=== PATIENT | male | born 1935 | race Caucasian/White ===

== ENCOUNTER 2020-07-29 13:21 | Outpatient (REF) | payer SELFPAY | END 2020-07-29 13:22 | disposition home or self-care (01) | LOC: HO.HAP 13:21 | PROVIDERS: Visit Provider Internal Medicine Pulmonary Disease | DX: Z46.1 Encounter for fitting and adjustment of hearing aid (principal) | CPT/HCPCS: 92700 ==

== ENCOUNTER 2020-08-05 10:22 | Outpatient (REF) | payer SELFPAY | END 2020-08-05 10:23 | disposition home or self-care (01) | LOC: HO.HAP 10:22 | PROVIDERS: PCP Internal Medicine Pulmonary Disease; Visit Provider Internal Medicine Pulmonary Disease | DX: Z13.89 Encounter for screening for other disorder (principal) | CPT/HCPCS: 92700 ==

== ENCOUNTER 2020-08-24 09:56 | Outpatient (REF) | payer SELFPAY | END 2020-08-24 09:57 | disposition home or self-care (01) | LOC: HO.HAP 09:56 | PROVIDERS: PCP Internal Medicine Pulmonary Disease; Referring Provider Internal Medicine Pulmonary Disease; Visit Provider Internal Medicine Pulmonary Disease | DX: Z13.89 Encounter for screening for other disorder (principal) | CPT/HCPCS: 92700 ==

== ENCOUNTER 2020-09-07 09:51 | Outpatient (REF) | payer SELFPAY | END 2020-09-07 09:52 | disposition home or self-care (01) | LOC: HO.HAP 09:51 | PROVIDERS: PCP Internal Medicine Pulmonary Disease; Referring Provider Internal Medicine Pulmonary Disease; Visit Provider Internal Medicine Pulmonary Disease | DX: Z13.89 Encounter for screening for other disorder (principal) | CPT/HCPCS: 92700 ==

== ENCOUNTER 2020-10-29 09:54 | Outpatient (REF) | payer SELFPAY | END 2020-10-29 09:55 | disposition home or self-care (01) | LOC: HO.HAP 09:54 | PROVIDERS: Visit Provider Internal Medicine Pulmonary Disease | DX: Z13.89 Encounter for screening for other disorder (principal) ==

== ENCOUNTER 2021-12-27 10:00 | Outpatient (REF) | payer SELFPAY | END 2021-12-27 10:01 | disposition home or self-care (01) | LOC: HO.HAP 10:00 | PROVIDERS: Visit Provider Internal Medicine Pulmonary Disease | DX: Z01.118 Encounter for examination of ears and hearing with other abnormal findings (principal); Z46.1 Encounter for fitting and adjustment of hearing aid; H90.3 Sensorineural hearing loss, bilateral | CPT/HCPCS: 92700 ==

== ENCOUNTER 2022-02-16 10:09 | Outpatient (REF) | payer MEDICARE, SELFPAY ==
--- NOTE | 2022-02-17 09:26 | MHC.AU.AHA ---
Adult Audiological Evaluation Date of Visit: 02/16/22 Reason for Appointment: Long-standing history of hearing loss. Patient arrives to determine if there has been a change in hearing. Previous Hearing Test Results: At this clinic on 06/08/2020- Mild to profound sensorineural hearing loss bilaterally Ear History: Recent Ear Drainage: None Reported Recent Ear Pain: None Reported Family History of Hearing Loss?: Yes Recent Ear Infections: None Reported History of Ear Wax Buildup: Both Ears Bothersome Tinnitus/Ringing/Noises in Ears: History of occupational noise exposure?: Yes Hearing Instrument History- Right Ear: Glue Mill Operator: Phonak Model: CardiOx M 90-SP Serial Number: [id number] Battery Size: 13 Repair Warranty: 09/29/2023 Dispensed By: [facility] Date of Fittin07/22/2020 Hearing Instrument History- Left Ear: Glue Mill Operator: Phonak Model: CardiOx M 90-SP Serial Number: [id number] Battery Size: 13 Warranty: 09/29/2023 Dispensed By: [facility] Date of Fittin07/22/2020 Otoscopy: Right Ear: Partially occluded with cerumen Left Ear: Unremarkable Tympanometry: Tympanometry performed due to: To assess integrity of the middle ear system Right Ear: Normal Middle Ear System (Type A) Left Ear: Normal Middle Ear System (Type A) Hearing Evaluation: Transducer(s) Used: Insert Earphones Method: Conventional Audiometry Stimuli Used: Pure Tones Right Ear: Description of Hearing: Mild steeply sloping to profound sensorineural hearing loss Left Ear: Description of Hearing: Mild steeply sloping to profound sensorineural hearing loss Speech Recognition Threshold (SRT): Method Used: Recorded Lists Stimuli Used: Spondee Words Right Ear: 35 dBHL Left Ear: 30 dBHL Word Discrimination: Method: Recorded Lists Word Lists Used: W-22 Right Ear: 64% at 80 dBHL Left Ear: 52% at 75 dBHL Most Comfortable Level (MCL): Right Ear: 80 dBHL Left Ear: 75 dBHL Aided Testing: Aided word discrimination: 88% at 50 dBHL Comparison: Compared to the most recent evaluation: Hearing is stable. Recommendations: Audiological re-evaluation in one year. Hearing aid maintenance performed today. No hearing aid programming changes made today. Diagnosis: Primary Diagnosis: H90.3 Bilateral Sensorineural Hearing Loss Signature: Provider: Fatmata Salvador, CCC-A
== END 2022-02-16 10:10 | disposition home or self-care (01) ==
LOC: HO.SH 10:09
PROVIDERS: Visit Provider Internal Medicine
DX: H90.3 Sensorineural hearing loss, bilateral (principal); H61.23 Impacted cerumen, bilateral
CPT/HCPCS: 92557; 92567

== ENCOUNTER 2022-03-28 13:13 | Outpatient (REF) | payer SELFPAY | END 2022-03-28 13:14 | disposition home or self-care (01) | LOC: HO.HAP 13:13 | PROVIDERS: Visit Provider Internal Medicine Pulmonary Disease | DX: Z13.89 Encounter for screening for other disorder (principal) ==

== ENCOUNTER 2022-05-04 11:28 | Outpatient (REF) | payer SELFPAY | END 2022-05-04 11:29 | disposition home or self-care (01) | LOC: HO.HAP 11:28 | PROVIDERS: Visit Provider Internal Medicine Pulmonary Disease | DX: Z13.89 Encounter for screening for other disorder (principal) ==

== ENCOUNTER 2022-05-19 12:08 | Outpatient (REF) | payer SELFPAY | END 2022-05-19 12:09 | disposition home or self-care (01) | LOC: HO.HAP 12:08 | PROVIDERS: Visit Provider Internal Medicine Pulmonary Disease | DX: Z13.89 Encounter for screening for other disorder (principal) ==

== ENCOUNTER 2022-08-22 12:05 | Outpatient (REF) | payer SELFPAY ==
--- NOTE | 2022-08-22 12:35 | MHC.AU.HFU ---
Hearing Instrument Follow-Up- Binaural Date of Visit: 08/22/22 Right Ear: Patternmaker Wood: Phonak Betsy M 90-SP Silver Martinez Serial#[id number] Repair Warranty: 09/29/2023 Loss and Damage Warranty: 09/29/2023 Service Plan: 07/22/2023 Battery Size: 13 Color: Silver Martinez Tubing: Tube Lock Type of Mold: Maria Teresa Skeleton #[id number] Warranty 10/06/2020 Type of Wax Guard: Dispensed By: [facility] Date of Fittin07/22/2020 Left Ear: Patternmaker Wood: Phonak Betsy M 90-SP Silver Martinez Serial#[id number] Repair Warranty: 09/29/2023 Loss and Damage Warranty: 09/29/2023 Service Plan: 07/22/2023 Battery Size: 13 Tubing: Tube Lock Type of Mold: Maria Teresa Skeleton #[id number] Warranty 10/06/2020 Dispensed By: [facility] Date of Fittin07/22/2020 Follow-Up Summary: Since the left aid was repaired in April 2022, the left ear has been hurting approximately one hour after being put in the ear. He has not worn his current left aid in about one month and is using his old aid with no problem. Patient has not had any trouble with the earmolds since being fit in 2019. When looking at the earmold on the aid, it is not angled properly which may cause the discomfort. Changed tubing for both aids and cleaned the aids, both amplifying well. Patient did not feel any discomfort when aids placed in ears, but it usually took about an hour to know. If problem continues he will schedule an appointment. Diagnosis Code(s)Primary Diagnosis: H90.3 Bilateral Sensorineural Hearing Loss Signature:Provider: Brad Good, [facility]
== END 2022-08-22 12:06 | disposition home or self-care (01) ==
LOC: HO.HAP 12:05
PROVIDERS: Visit Provider Internal Medicine Pulmonary Disease
DX: Z13.89 Encounter for screening for other disorder (principal)

== ENCOUNTER 2022-11-08 08:55 | Outpatient (REF) | payer SELFPAY | END 2022-11-08 08:56 | disposition home or self-care (01) | LOC: HO.HAP 08:55 | PROVIDERS: Visit Provider Internal Medicine Pulmonary Disease | DX: Z13.89 Encounter for screening for other disorder (principal) ==

== ENCOUNTER 2022-11-18 12:51 | Outpatient (REF) | payer SELFPAY | END 2022-11-18 12:52 | disposition home or self-care (01) | LOC: HO.HAP 12:51 | PROVIDERS: Visit Provider Internal Medicine Pulmonary Disease | DX: Z13.89 Encounter for screening for other disorder (principal) ==

== ENCOUNTER 2022-12-08 10:24 | Outpatient (REF) | payer SELFPAY | END 2022-12-08 10:25 | disposition home or self-care (01) | LOC: HO.HAP 10:24 | PROVIDERS: Visit Provider Internal Medicine Pulmonary Disease | DX: Z46.1 Encounter for fitting and adjustment of hearing aid (principal); H90.3 Sensorineural hearing loss, bilateral | CPT/HCPCS: V5264 ==

== ENCOUNTER 2023-10-12 08:34 | Outpatient (REF) | payer SELFPAY ==
--- NOTE | 2023-10-12 09:28 | MHC.AU.HA3 ---
Hearing Instrument Follow-Up- Binaural Date of Visit: 10/12/23 Right Ear: Tl, Model, Color, Serial Number: Vj Martino 90-SP SN: [id number] Color: Silver Martinez Events Intern Repair Warranty: 09/29/2023 Events Intern Loss and Damage Warranty: 09/29/2023 Battery Size: 13 Earmold/Dome/CShell/SlimTip:Maria Teresa Silicone 60 Shore Skeleton SN: [id number] Eduardo: 10/06/2020 Dispensed By: [facility] Date of Fittin07/22/2020 Left Ear: Tl, Model, Color, Serial Number: Vj Martino 90-SP SN: [id number] Color: Silver Martinez Events Intern Repair Warranty: 09/29/2023 Events Intern Loss and Damage Warranty: 09/29/2023 Battery Size: 13 Earmold/Dome/CShell/SlimTip: Microsonic [id number]-[id number] Skeleton Eduardo: 06/01/2023 Dispensed By: [facility] Date of Fittin07/22/2020 Follow-Up Summary: Brady brought both his old and new hearing aids and ear molds. Tubing on all molds has hardened and one old and one new mold have detached from the hearing aids. Cleaned all four hearing aids. Cleaned and retubed 5 ear molds (two old MicroSonic, two newer Maria Teresa, and one new MicroSonic). Brady also reported his new left MicroSonic ear mold is causing discomfort at entrance of canal. Buffed. Brady did not notice a significant difference in office as he has to wear the mold for some time to determine improvement. Brady will call if the problem persists. No charge today - Courtesy as hearing aids just went out of warranty. Brady knows that any future appointments will incur fee for service. Recommendations: Hearing instrument maintenance in 6 months, or sooner if needed. Please contact our clinic with any questions or concerns. Patient will call if problems persist. Diagnosis Code(s): Primary Diagnosis: H90.3 Bilateral Sensorineural Hearing Loss Signature: Provider: Brad Barron, CCC-A
== END 2023-10-12 08:35 | disposition home or self-care (01) ==
LOC: HO.HAP 08:34
PROVIDERS: Visit Provider Internal Medicine Pulmonary Disease
DX: Z13.89 Encounter for screening for other disorder (principal)